=== PATIENT | female | born 1950 | race Caucasian/White ===

== ENCOUNTER 2023-02-28 12:48 | Emergency (ER) | payer MEDICARE, OTHER, SELFPAY ==
[2023-02-28 13:06] VITALS: BP 129/75; PULSE 67; RESP 18; TEMP 36.6; O2SAT 97; BMI 29.5
--- NOTE | 2023-02-28 13:41 | ED_ITS ---
HPI - Eye Problem General: Chief complaint: Eye Problems Stated complaint: left eye irritation Time Seen by Provider: 02/28/23 13:18 Source: patient Mode of arrival: ambulatory Limitations: no limitations History of Present Illness: Patient is a very nice 72-year-old female presents to ED today with a complaint of a left red eye. Patient states she chronically suffers from dry eyes and uses [id number] eye lubrication drops for this. She states earlier this morning she began noticing that her left eye was tearing more than normal. She shortly later began noticing it was red. She is not having any pain or discomfort. She has no foreign body sensation. She has not had any injury or trauma to the eye. Denies visual changes or visual loss. Denies floaters, flashes, curtain sensations. chief complaint: eye redness Onset (ago): hour(s) Onset description: gradual Duration: constant Location: left eye Eye Symptoms: redness and discharge (increased tear production) Place: home Mechanism: none Associated symptoms: Reports no associated symptoms Treatments Prior to Arrival: OTC eye drops Related Data: Patient tetanus UTD: Yes Review of Systems Eyes: Reports: eye redness, dry eyes and increased production of tears; Denies: change in vision, blurry vision, blind spots, photophobia, eye discomfort, yellow eyes, floaters or seeing flashes Physical Exam Const: COMMON NORMALS: no acute distress, average body habitus, patient oriented x3, no limitations, healthy appearing, alert and well nourished Eye: COMMON NORMALS: Equal, round and reactive pupils present, EOMs intact bilaterally, no scleral icterus and normal visual meza by confrontation GENERAL EYE: appearance normal, both eyes and all related structures and normal light reflex VISUAL ACUITY: Yes acuity normal VISUAL MEZA: Yes other (normal visual meza) ALIGNMENT: Yes alignment normal PERIORBITAL: periorbital findings normal EYELID: eyelids normal CONJUNCTIVA: Yes conjunctival abnormal positive left conjunctival chemosis SCLERA: sclerae normal CORNEA: Yes corneas normal and fluorescein used (no abrasions visualized) PUPIL: Yes Equal, round and reactive pupils present DIRECT OPHTHALMOSCOPY: Yes normal light reflex Neuro: COMMON NORMALS: patient oriented x3 SENSORIUM/ORIENTATION: Yes alert Course Vital Signs: Vital signs: Vital Signs Temperature 98 F 02/28/23 13:06 Pulse Rate 66 12/04/23 14:42 Respiratory Rate 18 02/28/23 13:06 Blood Pressure 144/84 02/28/23 14:42 Pulse Oximetry 97 02/28/23 14:42 Oxygen Delivery Me thod Room Air 02/28/23 13:06 MDM - Eye Problem Medical Decision Making Patient with normal eye exam apart from some conjunctival injection/chemosis. She states she will follow up with her eye doctor. Strict return to ED precautions given. No radiology studies performed this visit Discharge Plan Discharge Patient Disposition: Home Clinical Impression: Chemosis of left conjunctiva Condition: Stable Prescriptions: New Clear Eyes Complete 0.025-0.2-0.5 % drops 2 drp ophthalmic (eye) BID PRN (Reason: eye irritation) Qty: 15 0RF Discharge Orders: Discharge ED (Routine); Ordered 02/28/23 Ordered By: Marie Waller Activity Restrictions/Additional Instructions: The prescription given to you today may be available [id number]. As we discussed you need to seek medical reevaluation if you begin having severe eye pain, foreign body sensation, visual loss or visual changes, or any other concerns you may have. Coding Level of Care Code ED Hardboard Press Operator for Carrol Kumar
[2023-02-28] MEDS: fluorescein 1 mg Strip EYE-LEFT (14:15)
[2023-02-28] MEDS: tetracaine 0.5% Op Soln 4 mL Btl 1 DROP EYE-LEFT (14:15)
[2023-02-28] MEDS: eye irrigation 30 mL Btl EYE-LEFT (14:15)
[2023-02-28 14:42] VITALS: BP 144/84; PULSE 66; O2SAT 97
== END 2023-02-28 14:40 | disposition home or self-care (01) ==
PROVIDERS: Emergency Provider Physician Assistant
DX: H11.422 Conjunctival edema, left eye (principal)
CPT/HCPCS: 99283